=== PATIENT | female | born 1985 | race Caucasian/White ===

== ENCOUNTER 2017-04-28 16:10 | Inpatient (IN) | payer MEDICAID ==
[~2017-04-28] VITALS: Ht 152.4 cm; Wt 70.0 kg
[2017-04-28] VITALS (13 sets, daily range): BP systolic 113–171; BP diastolic 56–92; PULSE 67–134; TEMP 98.1–99
[2017-04-28] MEDS ORDERED: ZOVIRAX400 MG PO (16:32)
[2017-04-28] MEDS ORDERED: ZOLOFT 50MG50 MG PO (16:32)
[2017-04-28] MEDS ORDERED: PRENATAL MVI (16:33)
[2017-04-28] MEDS ORDERED: CLARITIN 1010 MG/TAB PO (16:33)
[2017-04-28 19:11] LABS: BASO # 0.1 (0.0-0.2); BASO % 0.3 % (0.0-2.0); EOS # 0.1 (0.0-0.7); EOS % 0.2 % (0-4.0); GRAN # 15.4 (1.4-6.5); GRAN % 76.5 % (42.2-75.2); LYMPH # 3.4 (1.2-3.4); LYMPH % 16.8 % (20.0-51.0); MEAN CELL VOLUME 91 fl (80.0-100.0); MEAN CORPUSCULAR HGB CONC 34 g/dl (33.0-37.0); MEAN PLATELET VOLUME 10.1 fl (7.4-10.4); MONO # 1.1 (0.1-0.6); MONO % 5.5 % (1.7-9.3); PLATELET COUNT 370 K/mm3 (130-400); RED BLOOD COUNT 3.89 M/mm3 (4.10-5.30); REDCELL DISTRIBUTION WIDTH-CV 12.3 % (11.5-14.5)
[2017-04-28 19:13] LABS: HEMATOCRIT 35.2 % (37.0-47.0); HEMOGLOBIN 11.9 g/dl (12.5-16.0); MEAN CORPUSCULAR HEMOGLOBIN 31 pg (27.0-31.0)
[2017-04-29 01:00] VITALS: BP 109/62; PULSE 94; TEMP 98.4
[2017-04-29 05:20] VITALS: BP 118/67; PULSE 87; TEMP 98.4
[2017-04-29 07:00] VITALS: BP 113/62; PULSE 81; TEMP 98.1
[2017-04-29 11:40] VITALS: BP 111/67; PULSE 81; TEMP 98.2
[2017-04-29 16:30] VITALS: BP 111/62; PULSE 84; TEMP 98.4
[2017-04-29 20:40] VITALS: BP 124/65; PULSE 101; TEMP 98.1
[2017-04-30 07:30] VITALS: BP 129/78; PULSE 105; TEMP 98.2
[2017-04-30] MEDS ORDERED: PERCOCET 325 MG1 TA2 PO (08:35)
[2017-04-30] MEDS ORDERED: MOTRIN 800800 MG/TAB PO (08:35)
== END 2017-04-30 17:30 | disposition home or self-care (01) | DRG 775 ==
LOC: LDRO 16:10 → LDR 16:10 → LDRO 18:44 → OB 18:45 → LDR 18:45 → OB 04-29
PROVIDERS: Obstetrics & Gynecology
PROC: 10E0XZZ Delivery of Products of Conception, External Approach (ICD-10-PCS; principal; 2017-04-28)
PROC: 0UQMXZZ Repair Vulva, External Approach (ICD-10-PCS; 2017-04-28)
DX: O70.0 First degree perineal laceration during delivery (principal); Z3A.38 38 weeks gestation of pregnancy; Z37.0 Single live birth
CPT/HCPCS: J2590; J3010; J7120